=== PATIENT | female | born 1955 | race African-American/Black ===

== ENCOUNTER 2017-07-02 05:45 | Inpatient (IN) | payer MEDICARE, MEDICAID ==
[2017-07-02 06:35] LABS: #Basophils 0.1 thou/uL (0.0-0.2); #Eosinphils 0.2 thou/uL (0.0-0.7); #Lymphocytes 3.1 thou/uL (1.20-3.40); #Monocytes 0.4 thou/uL (0.11-0.59); #Neutrophils 4.2 thou/uL (1.40-6.50); %Basophils 1.2 % (0.0-1.0); %Eosinophils 2.8 % (0.0-10.0); %Lymphocytes 38.4 % (21.0-51.0); %Monocytes 5.5 % (0.0-10.0); Hematocrit 34.8 % (36.0-47.0); Mean Platelet Volume 7.4 fL (7.4-10.4); Red Blood Cell (RBC) Count 3.91 mill/uL (4.20-5.40)
[2017-07-02] MEDS ORDERED: CEFAZOLIN/Water 2 GM/20 ML SYRINGE ONE (06:51)
[2017-07-02 06:56] LABS: Anion Gap 14 mmol/L (10-20); BUN (Urea Nitrogen) 21 mg/dL (9.8-20.1); Calc. Creatinine Clearance 63 mL/min (70-130); Calcium 8.4 mg/dL (7.8-10.44); Carbon Dioxide 28 mmol/L (23-31); Chloride 104 mmol/L (98-107); Estimated GFR-MDRD 50
[2017-07-02] MEDS ORDERED: Sodium Chloride 0.9% 10 ML ONE (08:52)
[2017-07-02] MEDS ORDERED: Fentanyl 100 MCG/2 ML VIAL ONE ×4 (09:11→11:49)
--- NOTE | 2017-07-02 10:27 | OP ---
DATE OF PROCEDURE: 07/02/2017 SURGEON: Solomon Martin M.D. NURSERY ATTENDANT: Barbara Lopez PA-C PROCEDURES PERFORMED: L5-S1 laminectomy, facetectomy, and foraminotomy, interbody arthrodesis, intra vertebral biomechanical device, local morselized autograft, demineralized bone matrix, posterior late ral arthrodesis, and pedicle screw instrumentation, L5-S1. PROCEDURE IN DETAIL: The patient was brought into the operating room, intubated. She was rolled in the prone position on gel-filled chest rolls. Incision made exposing L5 and S1 and our level was con firmed by x-ray. We performed left L5-S1 laminectomy, facetectomy, and foraminotomy, completely deco mpressing the neural elements. The disk itself was incised and debrided and the bony endplates decor ticated for the purpose of arthrodesis. An appropriately sized intravertebral biomechanical PEEK dev ice was brought into the field, filled with demineralized bone matrix and local morselized autograft, and tapped into place securely at L5-S1. Next, pedicle screws were placed at left L5 and left S1 us ing lateral fluoroscopic guidance and the positioning was confirmed with x-ray. A soco was secured be tween the screws, connected by nuts which were final tightened. The wound was then extensively irrig ated, immaculate hemostasis was secured. A combination of demineralized bone matrix and local morsel ized autograft was laid over the laminar and posterolateral surfaces for the purpose of arthrodesis. Vancomycin powder was applied and the wound was then closed in anatomic layers.
[2017-07-02] MEDS ORDERED: Ondansetron HCl/PF 4 MG/2 ML Vial IVP PRN (10:36)
[2017-07-02] MEDS ORDERED: Promethazine HCl 25 MG/ML VIAL IM PRN ×2 (10:36→11:26)
[2017-07-02] MEDS ORDERED: Morphine Sulfate 2 MG/ML SYRINGE SLOW IVP PRN (10:36)
[2017-07-02] MEDS ORDERED: Meperidine HCl/PF 25 MG/ML VIAL SLOW IVP PRN (10:36)
[2017-07-02] MEDS ORDERED: Promethazine HCl 25 MG/ML VIAL SLOW IVP PRN (10:36)
[2017-07-02] MEDS ORDERED: HYDROmorphone 2 MG/ML VIAL SLOW IVP PRN (10:36)
[2017-07-02] MEDS ORDERED: Mag-Al 1200 mg/1200 mg/30 ML UDCUP PO PRN (11:26)
[2017-07-02] MEDS ORDERED: tiZANidine HCl 4 MG TAB PO PRN (11:26)
[2017-07-02] MEDS ORDERED: Promethazine HCl 12.5 MG SUPP PR PRN (11:26)
[2017-07-02] MEDS ORDERED: Milk Of Magnesia 30 ML UDCUP PO PRN (11:26)
[2017-07-02] MEDS ORDERED: Ondansetron HCl/PF 4 MG/2 ML Vial IM PRN (11:26)
[2017-07-02] MEDS ORDERED: Promethazine 25 MG TAB PO PRN (11:26)
[2017-07-02] MEDS ORDERED: Morphine 4 MG/ML Carpuject SLOW IVP PRN (11:26)
[2017-07-02] MEDS ORDERED: diphenhydrAMINE 25 MG CAP PO PRN (11:26)
[2017-07-02] MEDS ORDERED: HYDROcodone/Acetaminophen 10/325 mg Tablet PO PRN ×2 (11:26)
[2017-07-02] MEDS ORDERED: diphenhydrAMINE 50 MG/ML VIAL IVP PRN (11:26)
[2017-07-02] MEDS ORDERED: HumaLOG 300 UNITS/3 ML VIAL SC PRN (13:33)
[2017-07-02] MEDS ORDERED: Dextrose 5% in Water 1,000 ML IV PRN (13:33)
[2017-07-02] MEDS ORDERED: Dextrose 50% Abboject 50 ML SYRINGE SLOW IVP PRN (13:33)
--- NOTE | 2017-07-02 14:03 | CON ---
DATE OF CONSULTATION: 07/02/[address] Solomon Martin. The patient has out of town doctor; Dr. Hauser I believe is what she said. REASON FOR CONSULTATION: Consult for postop management. The patient had severe lumbar back pain radiating into her left leg. Postop, she still has some pain , but is doing much better. Postop, she has had no fever, chills, chest pain, shortness of breath, n ausea, or vomiting. PAST MEDICAL HISTORY: Pertinent for diabetes mellitus, type 2; hypertension; and anxiety. CURRENT MEDICATIONS: At home are clonazepam 0.5 mg twice a day p.r.n., Tylenol #3 q.4 hours p.r.n., Flexeril 10 mg t.i.d. p.r.n., clonidine 0.2 mg p.o. b.i.d., triamterene/hydrochlorothiazide 37.5/25 o ne a day, Nexium 40 mg a day, amlodipine 10 mg a day, metformin 500 mg b.i.d. ALLERGIES: PEPTO-BISMOL. PAST SURGICAL HISTORY: Bilateral cataract surgery, L-spine surgery, left knee surgery, cholecystecto my. FAMILY HISTORY: She has a sister with diabetes. All of her family members have hypertension. Fathe r with coronary artery disease. SOCIAL HISTORY: , nontobacco user, nonalcohol user. CODE STATUS: FULL CODE status. Daughter at bedside. REVIEW OF SYSTEMS: General: She has occasional vertigo, none recently. No fainting. No headache. Eyes: No double vision, blurred vision, flashing lights. Ears, nose, and throat: Ears occasionall y get stopped up and then opened up on her own. She does not require mechanical cleaning. No nasal bleeding. No trouble swallowing. No oral pain. Cardiac: No chest pain, orthopnea, or paroxysmal n octurnal dyspnea. Respirations: No cough, wheezing, or asthma. Gastrointestinal: No nausea, vomit ing, diarrhea, or constipation. Genitourinary: No hematuria, dysuria, or nocturia. Musculoskeletal : No pain or swelling in her legs except for the aforementioned back pain radiating into her left le g. Neurological: No strokes, seizures. Psychiatric: She has anxiety. No history of depression. Skin: No bruises, bleeding, or rash. Heme/Lymph: No tender or swollen lymph nodes in axilla, ingui nal, or cervical area. PHYSICAL EXAMINATION: VITAL SIGNS: Blood pressure 120/63, pulse 68, respirations 16, afebrile. HEENT: Examination of her head, eyes, ears, and throat, pupils are 1 mm and minimally reactive. Ext raocular movements are intact. Sclerae are white. Tympanic membranes clear. Nose clear. Oral muco us membranes are wet. NECK: Supple, without jugular venous distention, adenopathy, or thyromegaly. CHEST: Clear to auscultation and percussion. HEART: Had a regular rate and rhythm. First and second heart sounds are clear. No appreciated murm urs or gallops. ABDOMEN: Soft. Bowel sounds are normal. No hepatosplenomegaly, no mass, no rebound. EXTREMITIES: Reveal no cyanosis, clubbing, or edema. PULSES: Carotid, radial, femoral, and dorsalis pedis pulses intact. SKIN: Warm and dry without bruises or rash. HEME/LYMPH: No tender or swollen lymph nodes in axilla, inguinal, or cervical area. NEUROLOGIC: Cranial nerves II-XII are intact. Moved all extremities. Deep tendon reflexes diffusel y diminished. X-RAY FINDINGS: EKG reveals a normal sinus rhythm with sinus arrhythmia, tracing is within normal li mits. Other than reviewed by me, there are no x-rays presented. LABORATORY DATA: White count 8.0, hemoglobin 11.5, platelet count 285,000. Electrolytes are normal. BUN 21, creatinine 1.3, blood sugar 112. ADMITTING DIAGNOSES: 1. Diabetes mellitus, type 2, on oral hypoglycemic agent. 2. Hypertension, uncontrolled. 3. Chronic kidney disease, stage 3. 4. Anxiety. PLAN: The patient is doing well postop. We will follow with you. Agree with institution of her rou rodo medicines. Her analgesia appears to be adequate. We will order Accu-Cheks a.c. and at bedtime within next 24 hours, as she is currently not on her metformin. Thanks for the consult. We will follow with you as mentioned before.
[2017-07-02] MEDS ORDERED: Propofol 200 MG/20 ML VIAL ONE (15:21)
[2017-07-02] MEDS ORDERED: Ondansetron HCl/PF 4 MG/2 ML Vial ONE (15:21)
[2017-07-02] MEDS ORDERED: PHENYLEPHRINE-NS 100 MCG/ML 10 ML SYRINGE ONE (15:21)
[2017-07-02] MEDS ORDERED: Glycopyrrolate 0.2 MG/ML 5 ML SYRINGE ONE (15:21)
[2017-07-02] MEDS ORDERED: Lidocaine 1% PF 5 ML VIAL ONE ×2 (15:21)
[2017-07-02] MEDS ORDERED: Dexamethasone 20 MG/5 ML VIAL ONE (15:21)
[2017-07-02] MEDS: Sodium Chloride 0.9% 1,000 ML IV SCH ×2 (16:14→17:52)
[2017-07-02] MEDS ORDERED: Acetaminophen/Codeine 30-300mg Tablet PO PRN (17:32)
[2017-07-02] MEDS ORDERED: clonazePAM 0.5 MG TAB PO PRN (17:33)
[2017-07-02] MEDS ORDERED: Cyclobenzaprine 10 MG TAB PO PRN (17:33)
[2017-07-02] MEDS: CEFAZOLIN/Water 2 GM/20 ML SYRINGE SLOW IVP SCH (17:49)
[2017-07-02] MEDS ORDERED: metFORMIN 500 MG TAB PO SCH (18:15)
[2017-07-02 19:19] VITALS: BMI 37.5
[2017-07-02] MEDS: Ketorolac Tromethamine 30 MG/ML VIAL IVP SCH (22:20)
[2017-07-02] MEDS: cloNIDine 0.2 MG TAB PO SCH (22:21)
[2017-07-03] MEDS: CEFAZOLIN/Water 2 GM/20 ML SYRINGE SLOW IVP SCH (01:25)
[2017-07-03] MEDS: Sodium Chloride 0.9% 1,000 ML IV SCH (01:25)
[2017-07-03] MEDS: Ketorolac Tromethamine 30 MG/ML VIAL IVP SCH ×2 (03:24→09:08)
--- NOTE | 2017-07-03 07:08 | PDOC.PN ---
- Subjective Encounter Start Date: 07/03/17 Encounter Start Time: 07:06 Subjective: up and about, minimal discomfort - Objective MAR Reviewed: Yes Vital Signs & Weight: Vital Signs (12 hours) Temp Pulse Resp BP BP Pulse Ox 07/03/17 04:06 98.1 F 80 20 131/77 97 07/02/17 23:56 98.2 F 76 20 122/72 93 L 07/02/17 22:21 118/73 07/02/17 20:00 98.4 F 82 20 118/73 92 L 07/02/17 19:50 98.2 F 76 20 92 L Weight Weight 199 lb I&O: 07/02/17 07/03/17 07/04/17 06:59 06:59 06:59 Intake Total 1140 Balance 1140 Result Diagrams: 07/02/17 06:28 07/02/17 06:28 Additional Labs: Accuchecks 07/03/17 07/02/17 07/02/17 05:35 21:18 16:20 POC Glucose 122 H 205 H 147 H Phys Exam - Physical Examination Neck: no JVD Respiratory: clear to auscultation bilateral Cardiovascular: RRR, no significant murmur Gastrointestinal: soft, positive bowel sounds Musculoskeletal: no edema, pulses present Dx/Plan (1) DM type 2 (diabetes mellitus, type 2) Status: Acute Qualifiers: Diabetes mellitus complication status: with kidney complications Diabetes mellitus complication detail: with chronic kidney disease Diabetes mellitus loan counselor insulin use: without loan counselor use Chronic kidney disease stage: stage 3 (moderate) Qualified Code(s): E11.22 - Type 2 diabetes mellitus with diabetic chronic kidney disease; N18.3 - Chronic kidney disease, stage 3 ( moderate); N18.3 - Chronic kidney disease, stage 3 (moderate) (2) HTN (hypertension) Code(s): I10 - ESSENTIAL (PRIMARY) HYPERTENSION Status: Acute Qualifiers: Hypertension type: essential hypertension Qualified Code(s): I10 - Essential (primary) hypertension (3) CKD (chronic kidney disease), stage III Code(s): N18.3 - CHRONIC KIDNEY DISEASE, STAGE 3 (MODERATE) Status: Chronic (4) Anxiety Code(s): F41.9 - ANXIETY DISORDER, UNSPECIFIED Status: Chronic - Plan doing well post op. on home meds. glucose controlled. * .
--- NOTE | 2017-07-03 07:30 | DIS ---
TRANSFER OF CARE NOTE DATE OF ADMISSION: 07/02/2017 DATE OF DISCHARGE: 07/03/2017 PRIMARY CARE PHYSICIAN: Out of town. CONSULTING PHYSICIAN: Dr. Martin. FINAL DIAGNOSES: 1. Lumbar radiculopathy post surgical intervention. 2. Diabetes mellitus type 2. 3. Hypertension. 4. Chronic kidney disease stage 3. 5. Anxiety disorder. DISCHARGE MEDICATIONS: Clonazepam 0.5 mg b.i.d. p.r.n., Tylenol #3 one tablet p.o. q.4 hours p.r.n. pain, Flexeril 10 mg p.o. t.i.d. p.r.n., Catapres 0.2 mg p.o. b.i.d., triamterene/hydrochlorothiazide 37.5/25 a day, Nexium 40 mg a day, amlodipine 10 mg a day, metformin 500 mg b.i.d. ALLERGIES: Bismuth. CODE STATUS: Full. PENDING AT THE TIME OF DISCHARGE: Nothing. CONSULTATIONS: [facility]. PROCEDURES: L5-S1 laminectomy, facetectomy, foraminotomy, interbody arthrodesis, intravertebral biom echanical device. HOSPITAL COURSE: The patient admitted to the hospital for elective surgery. She was seen postoperat brandie by the [facility]. Her hospital stay has been uncomplicated. She is up and about . Vital signs are stable. She is doing well postop. FOLLOWUP: Per Dr. Martin.
[2017-07-03] MEDS ORDERED: metFORMIN 500 MG TAB PO SCH (08:00)
[2017-07-03] MEDS: cloNIDine 0.2 MG TAB PO SCH (08:58)
[2017-07-03 09:00] VITALS: BP 118/73
[2017-07-03] MEDS ORDERED: Amlodipine 10 MG TAB PO SCH (09:00)
[2017-07-03] MEDS ORDERED: Triamterene/Hydrochlorothiazide 37.5 mg/25 mg Tablet PO SCH (09:00)
[2017-07-03 09:14] VITALS: TEMP 98.2
== END 2017-07-03 11:13 | disposition home or self-care (01) | DRG 460 ==
LOC: SDC 05:45 → SURG B 11:12
PROVIDERS: ADMIT Neurological Surgery; ATTEND Neurological Surgery
PROC: 0QB00ZZ Excision of Lumbar Vertebra, Open Approach (ICD-10-PCS; principal; 2017-07-02)
PROC: 0SG30AJ Fusion of Lumbosacral Joint with Interbody Fusion Device, Posterior Approach, Anterior Column, Open Approach (ICD-10-PCS; 2017-07-02)
DX: M54.16 Radiculopathy, lumbar region (principal); E11.22 Type 2 diabetes mellitus with diabetic chronic kidney disease; N18.3 Chronic kidney disease, stage 3 (moderate); M48.07 Spinal stenosis, lumbosacral region; I12.9 Hypertensive chronic kidney disease with stage 1 through stage 4 chronic kidney disease, or unspecified chronic kidney disease; F41.9 Anxiety disorder, unspecified; Z88.8 Allergy status to other drugs, medicaments and biological substances
CPT/HCPCS: 36415; 36416; 76001; 80048; 85025; 93005; 93010; A4216; C1713; C1768; J1100; J1885; J2001; J2405; J2704; J3010; J3370; J3490

== ENCOUNTER 2018-11-09 08:28 | Inpatient (IN) | payer MEDICARE, MEDICAID ==
[2018-11-06 11:49] VITALS: BMI 41.1
[2018-11-09] MEDS ORDERED: Sodium Chloride 0.9% 10 ML ONE (09:03)
[2018-11-09 09:06] LABS: #Basophils 0.1 thou/uL (0.0-0.2); #Eosinphils 0.2 thou/uL (0.0-0.7); #Lymphocytes 3.1 thou/uL (1.20-3.40); #Monocytes 0.6 thou/uL (0.11-0.59); %Basophils 1.2 % (0.0-1.0); %Monocytes 7.8 % (0.0-10.0); %Neutrophils 50.1 % (42.0-75.0); Hemoglobin 11.9 g/dL (12.0-16.0); Mean Corpuscular HGB CONC 32.4 g/dL (32.0-36.0); Mean Corpuscular Hemoglobin 28.2 pg (27.0-31.0); Mean Corpuscular Volume 86.8 fL (78.0-98.0); Platelet Count 259 thou/uL (130-400); RBC Distribution Width 11.7 % (11.5-14.5); Red Blood Cell (RBC) Count 4.22 mill/uL (4.20-5.40)
[2018-11-09 09:23] LABS: Anion Gap 13 mmol/L (10-20); BUN (Urea Nitrogen) 24 mg/dL (9.8-20.1); Calc. Creatinine Clearance 50 mL/min (70-130); Calcium 9.2 mg/dL (7.8-10.44); Carbon Dioxide 28 mmol/L (23-31); Chloride 104 mmol/L (98-107); Estimated GFR-MDRD 34; Glucose 129 mg/dL (80-115); Potassium 3.5 mmol/L (3.5-5.1); Sodium 141 mmol/L (136-145)
[2018-11-09] MEDS ORDERED: Fentanyl 100 MCG/2 ML VIAL ONE ×4 (09:29→12:32)
[2018-11-09] MEDS ORDERED: Promethazine HCl 25 MG/ML VIAL SLOW IVP PRN (10:45)
[2018-11-09] MEDS ORDERED: Promethazine HCl 25 MG/ML VIAL IM PRN ×2 (10:45→11:16)
[2018-11-09] MEDS ORDERED: Ondansetron HCl/PF 4 MG/2 ML Vial IVP PRN (10:45)
[2018-11-09] MEDS ORDERED: Promethazine 25 MG TAB PO PRN (11:16)
[2018-11-09] MEDS ORDERED: Morphine 4 MG/ML VIAL SLOW IVP PRN (11:16)
[2018-11-09] MEDS ORDERED: Mag-Al 1200 mg/1200 mg/30 ML UDCUP PO PRN (11:16)
[2018-11-09] MEDS ORDERED: traMADol HCl 50 MG TAB PO PRN ×2 (11:16)
[2018-11-09] MEDS ORDERED: Milk Of Magnesia 30 ML UDCUP PO PRN (11:16)
[2018-11-09] MEDS ORDERED: HYDROcodone/Acetaminophen 10/325 mg Tablet PO PRN (11:16)
[2018-11-09] MEDS ORDERED: diphenhydrAMINE 25 MG CAP PO PRN (11:16)
[2018-11-09] MEDS ORDERED: diphenhydrAMINE 50 MG/ML VIAL IVP PRN (11:16)
[2018-11-09] MEDS ORDERED: Promethazine HCl 12.5 MG SUPP PR PRN (11:16)
[2018-11-09] MEDS ORDERED: Ondansetron PF 4 MG/2 ML Vial SLOW IVP PRN (11:19)
[2018-11-09] MEDS ORDERED: Morphine 2 MG/ML SYRINGE SLOW IVP PRN (11:30)
[2018-11-09] MEDS: HYDROcodone/Acetaminophen 10/325 mg Tablet PO PRN ×2 (15:01→20:54)
[2018-11-09] MEDS: tiZANidine HCl 4 MG TAB PO PRN ×2 (15:02→20:55)
[2018-11-09] MEDS ORDERED: Rocuronium Bromide 10 MG/ML (10ML VIAL) ONE (15:12)
[2018-11-09] MEDS ORDERED: PHENYLEPHRINE-NS 100 MCG/ML 10 ML SYRINGE ONE (15:12)
[2018-11-09] MEDS ORDERED: Glycopyrrolate 0.2 MG/ML 5 ML SYRINGE ONE (15:12)
[2018-11-09] MEDS ORDERED: Ketorolac Tromethamine 30 MG/ML VIAL ONE (15:12)
[2018-11-09] MEDS ORDERED: Dexamethasone 20 MG/5 ML VIAL ONE (15:12)
[2018-11-09] MEDS ORDERED: Ondansetron PF 4 MG/2 ML Vial ONE (15:12)
[2018-11-09] MEDS ORDERED: PROPOFOL 200 MG/20 ML VIAL ONE (15:12)
--- NOTE | 2018-11-09 16:06 | OP ---
DATE OF PROCEDURE: 11/09/2018 ASSISTANT ACCOUNT MANAGER: Barbara Lopez PA-C PROCEDURES PERFORMED: Left L4-L5 laminectomy, facetectomy, foraminotomy; removal of hardware, L5-S1; exploration of spinal fusion, L5-S1; posterolateral arthrodesis L4 to S1; pedicle screw instrumentation, L4 through S1, demineralized bone matrix, and local morselized autograft. DESCRIPTION OF PROCEDURE: The patient was brought to the operating room and intubated. She was rolled in the prone position on gel-filled chest rolls. The previous incision was reopened and extended superiorly. We performed a left L4-L5 partial laminectomy for decompression and then exposed the L5-S1 hardware and removed the nuts and rods. The fusion was explored and it was unclear whether or not it was solid. We next placed the pedicle screw at left L4, connected it via a soco to L5 and S1. All secured by nuts, which were final tightened. The wound was then extensively irrigated and maximum hemostasis was secured. A combination of demineralized bone matrix and local morselized autograft was laid over the right lamina and posterolateral surfaces for the purpose of arthrodesis. Vancomycin powder was applied and the wound was then closed in anatomic layers. Job ID: [id number]
[2018-11-09] MEDS: CEFAZOLIN 2 GM in Premix Bag 1 BAG IVPB SCH (17:00)
[2018-11-09] MEDS: Sodium Chloride 0.9% 1,000 ML IV SCH (17:03)
[2018-11-09] MEDS ORDERED: Senokot S 8.6-50 MG TAB PO PRN (21:48)
[2018-11-09] MEDS ORDERED: Cepastat Lozenges 1 LOZ PO PRN (21:48)
[2018-11-09] MEDS ORDERED: Diabetic Tussin 200 MG/10 ML UDCUP PO PRN (21:48)
[2018-11-09] MEDS ORDERED: Artificial Tears 18 DROP/0.9 ML EA EYE PRN (21:48)
[2018-11-09] MEDS ORDERED: Eucerin (Mineral Oil/Petrolatum,White) 30 gm Jar TOP PRN (21:48)
[2018-11-09] MEDS ORDERED: Sodium Chloride 0.65% Nasal 44 ML BOT EA NARE PRN (21:48)
[2018-11-09] MEDS ORDERED: Bisacodyl 5 MG TAB PO PRN (21:48)
[2018-11-09] MEDS ORDERED: hydrALAZINE 20 MG/ML VIAL SLOW IVP PRN (21:48)
--- NOTE | 2018-11-09 21:51 | PDOC.PN ---
- Subjective Encounter Start Date: 11/09/18 Encounter Start Time: 08:45 -: old records requested/rev Patient seen and examined. No new complaints. No overnight events consulted for medical management - Objective Resuscitation Status - Order Detail: 11/09/18 21:48 Resuscitation Status Routine Resuscitation Status: FULL: Full Resuscitation MAR Reviewed: Yes Vital Signs & Weight: Vital Signs (12 hours) Temp Pulse Resp BP BP Pulse Ox 11/09/18 19:36 98.4 F 66 18 128/60 90 L 11/09/18 16:45 81 18 118/78 11/09/18 15:40 98.1 F 77 18 117/58 L 94 L 11/09/18 14:40 77 20 139/65 96 11/09/18 14:10 66 20 153/63 H 11/09/18 13:40 80 20 155/73 H 11/09/18 13:10 98.2 F 68 18 157/70 H 94 L Weight Weight 225 lb I&O: 11/08/18 11/09/18 11/10/18 06:59 06:59 06:59 Intake Total 900 Output Total 400 Balance 500 Result Diagrams: 11/09/18 08:57 11/09/18 08:57 Phys Exam - Physical Examination Constitutional: NAD HEENT: PERRLA, moist MMs, sclera anicteric Neck: no JVD, supple Respiratory: no wheezing, no rales, no rhonchi Cardiovascular: RRR, no significant murmur, no rub Gastrointestinal: soft, non-tender, no distention, positive bowel sounds obesity+ Musculoskeletal: no edema, pulses present Neurological: non-focal, normal sensation, moves all 4 limbs Lymphatic: no nodes Psychiatric: normal affect, A&O x 3 Skin: no rash, normal turgor Dx/Plan (1) S/P lumbar laminectomy Code(s): Z98.890 - OTHER SPECIFIED POSTPROCEDURAL STATES Status: Acute (2) Anxiety and depression Code(s): F41.9 - ANXIETY DISORDER, UNSPECIFIED; F32.9 - MAJOR DEPRESSIVE DISORDER, SINGLE EPISODE, UNSPECIFIED Status: Chronic (3) GERD (gastroesophageal reflux disease) Code(s): K21.9 - GASTRO-ESOPHAGEAL REFLUX DISEASE WITHOUT ESOPHAGITIS Status: Chronic (4) Morbid obesity with BMI of 40.0-44.9, adult Code(s): E66.01 - MORBID (SEVERE) OBESITY DUE TO EXCESS CALORIES; Z68.41 - BODY MASS INDEX (BMI) 40.0-44.9, ADULT Status: Chronic (5) HTN (hypertension) Code(s): I10 - ESSENTIAL (PRIMARY) HYPERTENSION Status: Acute Qualifiers: (6) CKD (chronic kidney disease), stage III Code(s): N18.3 - CHRONIC KIDNEY DISEASE, STAGE 3 (MODERATE) Status: Chronic - Plan cont current plan of care, plan discussed w/ family, PT/OT, DVT proph w/SCDs * code status: Full code * home medication reconciled * PT/OT * pain control * post operative care as per surgeon * medication reviewed as below * symptomatic treatment. * continue IVF. * medically stable Review of Systems - Review of Systems ENT: negative: Ear Pain, Ear Discharge, Nose Pain, Nose Discharge, Nose Congestion, Mouth Pain, Mouth Swelling, Throat Pain, Throat Swelling, Other Respiratory: negative: Cough, Dry, Shortness of Breath, Hemoptysis, SOB with Excertion, Pleuritic Pain, Sputum, Wheezing Cardiovascular: negative: chest pain, palpitations, orthopnea, paroxysmal nocturnal dyspnea, edema, light headedness, other Gastrointestinal: negative: Nausea, Vomiting, Abdominal Pain, Diarrhea, Constipation, Melena, Hematochezia, Other Genitourinary: negative: Dysuria, Frequency, Incontinence, Hematuria, Retention , Other Musculoskeletal: negative: Neck Pain, Shoulder Pain, Arm Pain, Back Pain, Hand Pain, Leg Pain, Foot Pain, Other Skin: negative: Rash, Lesions, Brandon, Bruising, Other - Medications/Allergies Allergies/Adverse Reactions: Allergies Allergy/AdvReac Type Severity Reaction Status Date / Time bismuth subsalicylate Allergy Verified 11/06/18 11:48 [From Pepto-Bismol] Medications: Current Medications Hydrocodone Bitart/Acetaminophen ([place] 10/325) 1 tab PO Q4H PRN PRN Reason: PAIN (1-3) Hydrocodone Bitart/Acetaminophen ([place] 10/325) 2 tab PO Q4H PRN PRN Reason: PAIN (4-6) Last Admin: 11/09/18 20:54 Dose: 2 tab Al Hydroxide/Mg Hydroxide (Maalox) 30 ml PO Q4H PRN PRN Reason: Heartburn or Indigestion Artificial Tears (Tears Naturale) 2 drop EA EYE PRN PRN PRN Reason: Dry Eyes Bisacodyl (Dulcolax) 10 mg PO DAILYPRN PRN PRN Reason: Constipation Diphenhydramine HCl (Benadryl) 25 mg PO Q6H PRN PRN Reason: Itching Diphenhydramine HCl (Benadryl) 25 mg IVP Q6H PRN PRN Reason: Itching Guaifenesin (Robitussin Sf) 200 mg PO Q4H PRN PRN Reason: Cough Hydralazine HCl (Apresoline) 10 mg SLOW IVP Q4H PRN PRN Reason: SBP > 180 and HR < 70 Sodium Chloride (Normal Saline 0.9%) 1,000 mls @ 75 mls/hr IV .[id number] [facility] Last Admin: 11/09/18 17:03 Dose: 1,000 mls Cefazolin Sodium/Dextrose 2 gm (/ Device) 50 mls @ 100 mls/hr IVPB 0100,0900, 1700 [facility] Stop: 11/10/18 01:29 Last Admin: 11/09/18 17:00 Dose: 50 mls Magnesium Hydroxide (Milk Of Magnesium) 30 ml PO Q12H PRN PRN Reason: Constipation Mineral Oil/White Petrolatum (Eucerin Cream) 0 gm TOP BIDPRN PRN PRN Reason: Dry Skin Morphine Sulfate (Morphine) 4 mg SLOW IVP Q1H PRN PRN Reason: SEVERE BREAKTHROUGH PAIN Morphine Sulfate (Morphine) 2 mg SLOW IVP Q1H PRN PRN Reason: Moderate Breakthrough Pain Ondansetron HCl (Zofran) 4 mg SLOW IVP Q8H PRN PRN Reason: Nausea/Vomiting Promethazine HCl (Phenergan) 12.5 mg IM Q4H PRN PRN Reason: Nausea/Vomiting Promethazine HCl (Phenergan) 12.5 mg PO Q4H PRN PRN Reason: Nausea/Vomiting Promethazine HCl (Phenergan Suppository) 12.5 mg OK Q4H PRN PRN Reason: Nausea/Vomiting Senna/Docusate Sodium (Senokot S) 2 tab PO BID PRN PRN Reason: Constipation Sodium Chloride (Flush - Normal Saline) 10 ml IVF Q12HR MAILE Sodium Chloride (Flush - Normal Saline) 10 ml IVF PRN PRN PRN Reason: Saline Flush Sodium Chloride (Schleicher Nasal [place] 0.65%) 0 ml EA NARE QIDPRN PRN PRN Reason: Nasal Congestion Throat Lozenges (Cepastat Lozenges) 1 eliseo PO Q2H PRN PRN Reason: Sore Throat Tizanidine HCl (Zanaflex) 4 mg PO Q6H PRN PRN Reason: MUSCLE SPASM Last Admin: 11/09/18 20:55 Dose: 4 mg Tramadol HCl (Ultram) 50 mg PO Q6H PRN PRN Reason: PAIN (1-3) Tramadol HCl (Ultram) 100 mg PO Q6H PRN PRN Reason: PAIN (4-6)
[2018-11-10] MEDS: Sodium Chloride 0.9% 1,000 ML IV SCH ×2 (00:35→13:56)
[2018-11-10] MEDS: CEFAZOLIN 2 GM in Premix Bag 1 BAG IVPB SCH (00:43)
[2018-11-10] MEDS ORDERED: ALPRAZolam 0.25 MG TAB PO PRN (02:50)
[2018-11-10] MEDS ORDERED: Cyclobenzaprine 10 MG TAB PO PRN (02:52)
[2018-11-10] MEDS ORDERED: Gabapentin 300 MG CAP PO PRN (02:53)
[2018-11-10] MEDS: HYDROcodone/Acetaminophen 10/325 mg Tablet PO PRN ×2 (05:14→13:54)
[2018-11-10] MEDS: tiZANidine HCl 4 MG TAB PO PRN ×2 (05:14→13:54)
[2018-11-10] MEDS ORDERED: clonazePAM 0.5 MG TAB PO SCH (09:00)
[2018-11-10] MEDS ORDERED: Ondansetron ODT 4 MG TAB PO SCH (09:00)
[2018-11-10] MEDS ORDERED: Amlodipine 10 MG TAB PO SCH (09:00)
[2018-11-10] MEDS ORDERED: Triamterene/Hydrochlorothiazide 37.5 mg/25 mg Tablet PO SCH (09:00)
--- NOTE | 2018-11-10 09:19 | DIS ---
DATE OF ADMISSION: 11/09/2018 DATE OF DISCHARGE: 11/10/2018 HISTORY AND PHYSICAL ILLNESS: The patient is a 62-year-old female, status post extension of lumbar fusion at L4-L5. Following the surgery, she was transitioned to the floor where her pain has been well-controlled with p.o. medications, she is tolerating regular diet, and she is voiding appropriately. She has been ambulating in the room and up to the bathroom several times without difficulty. She has had some incisional drainage issues overnight requiring reinforcement of her dressing. She is awake, alert, and in no acute distress. She has free active range of motion of all extremities. No focal motor weakness is appreciated. No reflex asymmetry. There is a moderate amount of dark red blood on the original dressing. Incision is intact. No evidence of dehiscence or other abnormalities. We will change dressing now and recommend b.i.d. dressing changes. I anticipate that incisional drainage will improve with time. I have discussed home care and regular dressing changes with the patient. She would like to return home today and we agree with this plan. We will get her a rolling walker prior to discharge. I have discussed home care precautions and we will follow up with the patient in 2 weeks. Job ID: [id number]
[2018-11-10 11:28] VITALS: BP 136/65; TEMP 98.3
--- NOTE | 2018-11-10 15:39 | PDOC.EVN ---
Event Note - Event Note Event Note: Pt discharged prior to IM team evaluation.chart reviewed.
--- NOTE | 2018-11-10 22:25 | EKG ---
Test Reason : PREOP Blood Pressure : / mmHG Vent. Rate : 079 BPM Atrial Rate : 079 BPM P-R Int : 120 ms QRS Dur : 076 ms QT Int : 396 ms P-R-T Axes : 055 008 023 degrees QTc Int : 454 ms Normal sinus rhythm Normal ECG When compared with ECG of 02-JUL-2017 06:36, No significant change was found Confirmed by Yanelis HUTCHINSON ([id number]) on 11/10/2018 10:25:18 PM Referred By: ROOPA Confirmed By:Yanelis HUTCHINSON
== END 2018-11-10 15:15 | disposition home or self-care (01) | DRG 460 ==
LOC: SURG A 08:28 → 3SE 13:41
PROVIDERS: ADMIT Neurological Surgery; ATTEND Neurological Surgery
PROC: 0SG3071 Fusion of Lumbosacral Joint with Autologous Tissue Substitute, Posterior Approach, Posterior Column, Open Approach (ICD-10-PCS; principal; 2018-11-09)
PROC: 0SG0071 Fusion of Lumbar Vertebral Joint with Autologous Tissue Substitute, Posterior Approach, Posterior Column, Open Approach (ICD-10-PCS; 2018-11-09)
PROC: 0SP304Z Removal of Internal Fixation Device from Lumbosacral Joint, Open Approach (ICD-10-PCS; 2018-11-09)
DX: M43.16 Spondylolisthesis, lumbar region (principal); Z90.49 Acquired absence of other specified parts of digestive tract; Z98.1 Arthrodesis status; Z90.710 Acquired absence of both cervix and uterus
CPT/HCPCS: 36415; 76000; 80048; 85025; 93005; 93010; C1713; C1768; J3010; J3370; J3490; Q0162

== ENCOUNTER 2018-11-25 14:37 | Outpatient (CLI) | payer MEDICARE, MEDICAID ==
--- NOTE | 2018-11-25 15:11 | RAD ---
LUMBAR SPINE TWO VIEWS: HISTORY: Follow up postoperative surgery. M43.16, spondylolisthesis of the lumbar region. COMPARISON: None. FINDINGS: There is a single unilateral left-sided posterior spinal fixation at L4-L5 with transpedicular screws . There is a left-sided denys-discectomy spacer at L5-S1. Surgical miki are present. No significant listhesis at L5-S1. There is 2 mm L4 over L5 anterolisthesis. No hardware complicati on. IMPRESSION: Satisfactory postoperative appearance, POS: [facility]
== END 2018-11-25 14:38 | disposition home or self-care (01) ==
LOC: TBSIIMAG 14:37
PROVIDERS: ATTEND Neurological Surgery
DX: M43.16 Spondylolisthesis, lumbar region (principal); Z98.890 Other specified postprocedural states
CPT/HCPCS: 72100